=== PATIENT | female | born 1945 | race Caucasian/White ===

== ENCOUNTER → 2017-09-27 | Outpatient (CLI) | payer MEDICARE ==
[~2017-09-27] MED LIST: ASPI-515 PO; CHOL20002 PO; CLON0.2T PO; DOCU100T3 PO; DOXE50CA PO; FOLI0.8T2 PO; FURO-92 PO; INSU100V8 SQ; LOSA100T6 PO; LOSA50TA6 PO; METF500T27 PO; METH2.5T SQ; METO-99 PO; PRAV40TA2 PO; SPIR50TA2 PO
== END | disposition home or self-care (01) ==
LOC: CFH 09:40
PROVIDERS: ATTEND Family Medicine
DX: I35.8 Other nonrheumatic aortic valve disorders (principal); I05.9 Rheumatic mitral valve disease, unspecified; I13.0 Hypertensive heart and chronic kidney disease with heart failure and stage 1 through stage 4 chronic kidney disease, or unspecified chronic kidney disease; N18.9 Chronic kidney disease, unspecified; E11.9 Type 2 diabetes mellitus without complications; M32.0 Drug-induced systemic lupus erythematosus
CPT/HCPCS: 93306

== ENCOUNTER 2018-11-06 07:06 | Inpatient (IN) | payer MEDICARE ==
[~2018-11-06] VITALS: Ht 160 cm; Wt 60.7 kg
[2018-11-08 08:09] VITALS: BP 148/86
== END 2018-11-08 10:12 | disposition home or self-care (01) | DRG 246 ==
LOC: ED 07:47 → EDIP 07:53 → CSU 08:00 → 5SO 11-07 10:28 → DCLOUNGE 11-08 09:52
PROVIDERS: ADMIT Internal Medicine; ATTEND Internal Medicine
PROC: 027034Z Dilation of Coronary Artery, One Artery with Drug-eluting Intraluminal Device, Percutaneous Approach (ICD-10-PCS; principal; 2018-11-06)
PROC: 4A023N7 Measurement of Cardiac Sampling and Pressure, Left Heart, Percutaneous Approach (ICD-10-PCS; 2018-11-06)
PROC: B2111ZZ Fluoroscopy of Multiple Coronary Arteries using Low Osmolar Contrast (ICD-10-PCS; 2018-11-06)
PROC: B2151ZZ Fluoroscopy of Left Heart using Low Osmolar Contrast (ICD-10-PCS; 2018-11-06)
DX: I21.19 ST elevation (STEMI) myocardial infarction involving other coronary artery of inferior wall (principal); N17.0 Acute kidney failure with tubular necrosis; I44.2 Atrioventricular block, complete; I97.791 Other intraoperative cardiac functional disturbances during other surgery; Y83.8 Other surgical procedures as the cause of abnormal reaction of the patient, or of later complication, without mention of misadventure at the time of the procedure; Y92.234 Operating room of hospital as the place of occurrence of the external cause; Z90.13 Acquired absence of bilateral breasts and nipples; E11.22 Type 2 diabetes mellitus with diabetic chronic kidney disease; I25.10 Atherosclerotic heart disease of native coronary artery without angina pectoris; N18.9 Chronic kidney disease, unspecified; I12.9 Hypertensive chronic kidney disease with stage 1 through stage 4 chronic kidney disease, or unspecified chronic kidney disease; E78.5 Hyperlipidemia, unspecified; Z82.49 Family history of ischemic heart disease and other diseases of the circulatory system; Z87.891 Personal history of nicotine dependence
CPT/HCPCS: 0399T; 36415; 71045; 80047; 80048; 84484; 85014; 85018; 85025; 85610; 85730; 87081; 93005; 93306; 93458; 99156; 99157; 99291; C1769; C1894; C9600; G0378; J0461; J1644; J2250; J3010; C1725; C1874; C1887; J1815; J7030; Q9967

== ENCOUNTER 2019-03-16 16:27 | Emergency (ER) | payer MEDICARE ==
[~2019-03-16] VITALS: Ht 147.3 cm; Wt 59.1 kg
[~2019-03-16 16:27] MED LIST changes: +ACYC-114 PO; +ATOR-2 PO; +ATOR20TA PO; +CARV25TA12 PO; -CHOL20002 PO; +CHOL200052 PO; +CLOP75TA PO; +LOSA100T14 PO; -LOSA100T6 PO; +LOSA50TA14 PO; -LOSA50TA6 PO; -SPIR50TA2 PO; +SPIR50TA4 PO; +TIZA4TAB2 PO
[2019-03-16 16:33] VITALS: BP 163/74
--- NOTE | 2019-03-16 16:34 | NUR ---
BIB EMS FOR C/O POSSIBLE SYNCOPAL EVENT. PT STATES SHE HAD IRON INFUSION TODAY FROM [id number] THEN WENT TO WORK AND FELT LIKE SHE WAS GOING TO PASS OUT. PT STATES SHE FEELS LIKE HAVING DIARRHEA. NO BOUTS OF N/V/D. PT REFUSED VITALS, BS, AND PIV TO BE INITIATED BY EMS. PT CURRENTLY ON COMMODE.
[2019-03-16] MEDS ORDERED: SODIUM CHLORIDE 0.9% 1,000ML IVBOLUS ONE (17:00)
[2019-03-16] MEDS ORDERED: SODIUM CHLORIDE FLUSH 10ML SYR IVF ONE (17:00)
--- NOTE | 2019-03-16 17:18 | NUR ---
PT REFUSING PIV AND IVF. STATES SHE WOULD RATHER JUST DRINK PO FLUIDS. ERP NOTIFIED. PER ERP OKAY FOR PT TO DRINK PO FLUIDS.
[2019-03-16 17:20] LABS: BASOPHILS % (AUTO) 1 % (0-1); EOSINOPHILS # (AUTO) 0.39 x10^3/uL (0-0.4); EOSINOPHILS % (AUTO) 2 % (1-7); LYMPHOCYTES # (AUTO) 1.82 x10^3/uL (1-3.4); LYMPHOCYTES % (AUTO) 11 % (22-44); MD NO; MEAN CORPUSCULAR HEMOGLOBIN 29.7 pg (27.0-34.8); MEAN CORPUSCULAR HGB CONC 32.4 g/dL (32.4-35.8); MEAN CORPUSCULAR VOLUME 91.6 fL (80-100); MEAN PLATELET VOLUME 7.7 fL (7.4-10.4); MONOCYTES % (AUTO) 5 % (2-9); NEUTROPHILS # (AUTO) 12.95 x10^3/uL (1.8-6.8); NEUTROPHILS % (AUTO) 81 % (42-75); PLATELET COUNT 367 x10^3/uL (130-400); RED BLOOD COUNT 4.79 x10^6/uL (3.82-5.3); RED CELL DISTRIBUTION WIDTH 15.5 % (9.6-15.2)
[2019-03-16 17:20] LABS: MICROSCOPIC NOT IND
[2019-03-16 17:24] LABS: CULTURE INDICATED? NO
[2019-03-16 17:30] LABS: ALBUMIN 3.8 g/dL (3.4-5.0); ANION GAP 7 mmol/L (5-15); CALCIUM 9.4 mg/dL (8.5-10.1); CHLORIDE 104 mmol/L (98-107); CREATININE 1.32 mg/dL (0.55-1.02)
[2019-03-16 17:34] LABS: TROPONIN I < 0.015 ng/mL (0.000-0.045)
== END 2019-03-16 18:26 | disposition home or self-care (01) ==
LOC: ED 18:20
DX: T45.4X5A Adverse effect of iron and its compounds, initial encounter (principal); I10 Essential (primary) hypertension; I25.2 Old myocardial infarction; E11.9 Type 2 diabetes mellitus without complications; E78.5 Hyperlipidemia, unspecified; Z88.2 Allergy status to sulfonamides; Z88.8 Allergy status to other drugs, medicaments and biological substances; Y92.89 Other specified places as the place of occurrence of the external cause
CPT/HCPCS: 36415; 80048; 81003; 82040; 83735; 84484; 85025; 93005; 99284

== ENCOUNTER 2019-03-31 13:15 | Outpatient (CLI) | payer MEDICARE ==
[2019-03-31] MEDS ORDERED: OMNIPAQUE 350 MG/ML, 150 ML BOTTLE ONE (15:06)
== END 2019-03-31 23:59 | disposition home or self-care (01) ==
LOC: CFH 13:15
PROVIDERS: ATTEND Family Medicine
DX: J90 Pleural effusion, not elsewhere classified (principal); N17.9 Acute kidney failure, unspecified; M79.671 Pain in right foot; N28.1 Cyst of kidney, acquired
CPT/HCPCS: 73630; 74178; Q9967

== ENCOUNTER → 2019-05-10 | Outpatient (CLI) | payer MEDICARE ==
[~2019-05-10] MED LIST changes: +REGADENOSON 0.4 MG/5 ML SYRINGE ONE
== END | disposition home or self-care (01) ==
LOC: CFH 08:14
PROVIDERS: ATTEND Internal Medicine Cardiovascular Disease
DX: I25.10 Atherosclerotic heart disease of native coronary artery without angina pectoris (principal); I10 Essential (primary) hypertension
CPT/HCPCS: 78452; 93017; A9502; J2785

== ENCOUNTER → 2019-05-22 | Outpatient (CLI) | payer MEDICARE ==
[~2019-05-22] MED LIST changes: -REGADENOSON 0.4 MG/5 ML SYRINGE ONE
== END | disposition home or self-care (01) ==
LOC: CFH 07:14
PROVIDERS: ATTEND Internal Medicine Cardiovascular Disease
DX: I25.10 Atherosclerotic heart disease of native coronary artery without angina pectoris (principal); I10 Essential (primary) hypertension; E11.9 Type 2 diabetes mellitus without complications; E78.2 Mixed hyperlipidemia
CPT/HCPCS: 71046; 93306